=== PATIENT | female | born 1975 | race American Indian/Alaskan Native ===

== ENCOUNTER → 2019-04-16 | Day surgery (SDC) | payer BC, OTHER ==
--- NOTE | 2019-04-19 17:09 | PATH ---
Surgical Pathology Report Patient Name: MICHAEL ENAMORADO [facility]. Rec. #: [id number] /Age/Gender: 1975 (Age: 43) / F Account: [id number] Location: RADIOLOGY [facility] Taken: 04/16/2019 Received: 04/16/2019 Reported: 04/19/2019 Physicians: Ritu Hanks MD Specimen(s) Received LEFT BREAST 1:00 MASS Clinical History Nonpalpable lesion Ultrasound findings: Suspicious Final Diagnosis LEFT BREAST, 1:00, 4 CM FN, 0.8 CM MASS, CORE BIOPSY: INVASIVE DUCTAL CARCINOMA, WELL DIFFERENTIATED, MEASURING 0.5 CM IN LENGTH MEASURED ON THIS SLIDE. Results of Estrogen Receptor (ER) and Progesterone Receptor (HI) studies performed on block "1" at [facility] are as follows: ER (clone [id number] mouse monoclonal antibody by [employer]): 100% nuclear staining with strong and moderate intensity (Positive). HI (clone16 mouse monoclonal antibody by [employer]): 100% nuclear staining with strong intensity (Positive). Positive and negative controls (internal if applicable) show appropriate results. Formalin fixation and cold ischemic times are within current ASCO/CAP recommendations for ER, HI and Her2 testing. Comment: Immunohistochemical stains performed and interpreted at [facility] show the following results: smooth muscle myosin heavy chain and p63 show loss of the myoepithelial cell layer in the areas of invasive carcinoma. The tumor cells are positive for E-Cadherin, supporting a ductal phenotype. Reports for Her 2 and Ki-67 to follow. Electronically Signed Isidro Issa M.D. Addendum Reported: 04/20/2019 Addendum Diagnosis Biomarker Studies Results of Her2 (IHC) & Ki-67 studies performed on this specimen at [place], [place] ([id number]) interpreted at [facility] are as follows: Her2 IHC (EP3 from [employer], formerly known as NI3624L, using [employer] Polymer Refine detection kit): Negative (1+) Ki-67: <15% (low proliferative index) This case was discussed with Dr. Tolbert on April 20, 2019. Isidro Issa M.D. Gross Description Received in formalin labeled "left breast 1:00," are 5 pickering-yellow, cylindrical portions of fibroadipose tissue ranging from 0.5-1.5 cm in length and averaging 0.1 cm in diameter. The specimens are submitted in toto in one cassette. Time to formalin fixation: Less than one minute Total formalin fixation time: Approximately 9 hours. 04/16/2019 [facility]04/16/2019
== END | disposition home or self-care (01) ==
LOC: JRADUS-SUR 08:23
PROVIDERS: ATTEND Obstetrics & Gynecology
PROC: 0HBU3ZX Excision of Left Breast, Percutaneous Approach, Diagnostic (ICD-10-PCS; principal; 2019-04-16)
DX: C50.912 Malignant neoplasm of unspecified site of left female breast (principal)
CPT/HCPCS: 19083; 88305-TC; 88341-TC; 88342-TC

== ENCOUNTER 2024-02-12 12:35 | Emergency (ER) | payer OTHER, BC ==
[2024-02-12 12:45] VITALS: TEMP 98.7; BMI 29.6
[2024-02-12] MEDS ORDERED: ONDANSETRON *ODT* 4 MG TABLET ONE (13:35)
[2024-02-12] MEDS: ONDANSETRON *ODT* 4 MG TABLET SL ONE (13:37)
[2024-02-12] MEDS ORDERED: ACETAMINOPHEN 325 MG TABLET (FP) ONE (15:23)
[2024-02-12] MEDS: ACETAMINOPHEN 325 MG TABLET (FP) PO ONE (15:27)
[2024-02-12 17:50] VITALS: BP 122/68; PULSE 58; RESP 16
== END 2024-02-12 17:51 | disposition home or self-care (01) ==
LOC: JER 12:35
DX: S09.90XA Unspecified injury of head, initial encounter (principal); F07.81 Postconcussional syndrome; R51.9 Headache, unspecified; M54.2 Cervicalgia; R11.2 Nausea with vomiting, unspecified; R42 Dizziness and giddiness; Y04.0XXA Assault by unarmed brawl or fight, initial encounter
CPT/HCPCS: 70450-TC; 72125-TC; 99284-25; Q0162